=== PATIENT | female | born 1960 | race Caucasian/White ===

== ENCOUNTER 2019-05-07 08:07 | Day surgery (SDC) | payer OTHER ==
[~2019-05-07] VITALS: Ht 157.5 cm; Wt 93.1 kg
[~2019-05-07 08:07] MED LIST: AMLO5 PO; Aspir 8181 MG PO; CALCIUM PO; ESTR2 PO; FISH OIL + D31 EACH PO; GLUCHON PO; Hair, Skin & N1 EACH PO; OMEP20ER PO; Vitamin D2000 UNIT PO
--- NOTE | 2019-05-07 08:49 | NUR ---
Ambulatory in Day Surgery. Patient states colon prep results clear. History, Chart, Medications and Allergies reviewed before start of procedure. Lungs clear T/O to Auscultation. Patient confirms NPO status and agrees with scheduled surgery. Pre-Op teaching done. Pt verbalizes understanding. Patient States Post-Procedure ride home has been arranged.
--- NOTE | 2019-05-07 08:54 | NUR ---
05/07/19 0854 Olman Good PATIENT DETERMINED TO BE ASA APPROPRIATE FOR PROPOFOL SEDATION PRIOR TO START OF PROCEDURE BY . 3-LEAD EKG REVIEWED WITH PHYSICIAN PRIOR TO START OF PROCEDURE.Patient to ENDO 1. History, Chart, Medications and Allergies reviewed before start of procedure.MONITOR INTACT WITH CONTINUOUS PULSE OXIMETRY AND INTERMITTENT BP.O2 VIA N/C INTACT THROUGHOUT SEDATION/PROCEDURE.
--- NOTE | 2019-05-07 09:25 | NUR ---
DR REECE AT BEDSIDE SPEAKING WITH PATIENT ABOUT RESULTS.
--- NOTE | 2019-05-07 09:35 | NUR ---
Discharge instructions reviewed with patient. Patient verbalizes understanding. Copy given to patient to take home. Patient States Post-Procedure ride home has been arranged with her , Souleymane. VSS. No C/O.
--- NOTE | 2019-05-07 09:55 | NUR ---
0945- UP TO DRESS. GAIT STEADY. 0950- TRANSPORT TO PERSONAL VEHICLE VIA W[facility]C TRANSPORT.
== END 2019-05-07 23:02 | disposition home or self-care (01) ==
LOC: ORSCMMR 08:07 → ORD 09:00 → ORSCMMR 23:02
PROVIDERS: Internal Medicine Gastroenterology
PROC: 0DBH8ZX Excision of Cecum, Via Natural or Artificial Opening Endoscopic, Diagnostic (ICD-10-PCS; principal; 2019-05-07 09:00)
DX: Z12.11 Encounter for screening for malignant neoplasm of colon (principal); D12.0 Benign neoplasm of cecum; Z86.010 Personal history of colon polyps; Z80.0 Family history of malignant neoplasm of digestive organs; I10 Essential (primary) hypertension; K21.9 Gastro-esophageal reflux disease without esophagitis; Z79.82 Long term (current) use of aspirin; Z79.899 Other long term (current) drug therapy; K57.30 Diverticulosis of large intestine without perforation or abscess without bleeding
CPT/HCPCS: 88305; J2704; J7120

== ENCOUNTER → 2023-01-12 | Outpatient (CLI) | payer OTHER ==
[2023-01-24 17:07] LABS: HPV APTIMA Negative (Negative)
== END ==
LOC: LAB SHORT 13:24 → LAB 13:24
PROVIDERS: Family Medicine
DX: Z12.4 Encounter for screening for malignant neoplasm of cervix (principal)
CPT/HCPCS: 87624; 88175

== ENCOUNTER 2025-04-11 09:23 | Day surgery (SDC) | payer MEDICARE, BC ==
[~2025-04-11] VITALS: Ht 160 cm; Wt 82.8 kg
[~2025-04-11 09:23] MED LIST changes: +Bupivacaine 0.5% W/EPI 1:200000 SDV 30 ML Vial ONE; +HYDCHL25
[2025-04-11] MEDS ORDERED: CeFAZolin Sodium 2,000 MG VIAL ONE (09:33)
[2025-04-11] MEDS ORDERED: AMLODIPINE BES2.5 MG PO (09:48)
[2025-04-11] MEDS ORDERED: MELO7.5 (09:49)
[2025-04-11] MEDS ORDERED: HYDCHL25 PO (09:51)
[2025-04-11] MEDS ORDERED: MOME.1TO (09:52)
[2025-04-11] MEDS ORDERED: FentaNYL Citrate 50 MCG/ML 2 ML Injection ONE (10:13)
[2025-04-11] MEDS ORDERED: Midazolam HCl 1MG / ML 2ML Vial ONE (10:13)
[2025-04-11] MEDS ORDERED: Glycopyrrolate 0.2 MG/ML 5ML VIAL ONE (10:53)
[2025-04-11] MEDS ORDERED: Ketorolac Tromethamine 30mg Vial ONE ×2 (10:53)
[2025-04-11] MEDS ORDERED: Ondansetron HCl 2 MG / ML 2ML Vial ONE (11:00)
[2025-04-11] MEDS ORDERED: Dexamethasone Sod Phos 10 MG/ML 1ML VIAL ONE (11:00)
--- NOTE | 2025-04-11 12:21 | NUR ---
04/11/25 1221 Melva Rondon. PT DENIES NAUSEA/DIZZINESS/PAIN. DR BROWN AT BEDSIDE.
[2025-04-11 12:22] VITALS: BP 111/68
== END 2025-04-11 12:11 | disposition home or self-care (01) ==
LOC: ORSCSDS 09:23
PROVIDERS: Podiatrist Foot & Ankle Surgery
PROC: 0L8W0ZZ Division of Left Foot Tendon, Open Approach (ICD-10-PCS; principal; 2025-04-11 10:45)
PROC: 0QBP0ZZ Excision of Left Metatarsal, Open Approach (ICD-10-PCS; principal; 2025-04-11 10:45)
PROC: 0SRQ0JZ Replacement of Left Toe Phalangeal Joint with Synthetic Substitute, Open Approach (ICD-10-PCS; principal; 2025-04-11 10:45)
DX: M20.42 Other hammer toe(s) (acquired), left foot (principal); I10 Essential (primary) hypertension; K21.9 Gastro-esophageal reflux disease without esophagitis; E66.9 Obesity, unspecified; Z68.32 Body mass index [BMI] 32.0-32.9, adult; Z79.899 Other long term (current) drug therapy
CPT/HCPCS: A6253; C1776; J0690; J1100; J1885; J2250; J2405; J2704; J3010; J7120